=== PATIENT | female | born 1970 | race African-American/Black ===

== ENCOUNTER 2016-12-27 19:59 | Emergency (ER) | payer MEDICARE, MEDICAID ==
--- NOTE | 2016-12-27 21:19 | ER Document Report ---
ED Eye Complaint - General Chief Complaint: Eye Pain Stated Complaint: RIGHT EYE PAIN Time Seen by Provider: 12/27/16 20:56 Mode of Arrival: Ambulatory Information source: Patient Notes: 46-year-old female presents to ED for complaint of eye pain for 2-1/2 weeks. She states she went to her primary doctor about 2 weeks ago and told him she had a sinus problem. She thinks she might of gotten some in her eye about 2-1/ 2 weeks ago but it did not start hurting until 2 days ago. She states she has not had any redness but she has had a little bit of eye drainage. She states she wears glasses but did not bring them with her. She states that she recently got glasses in September and she thinks the prisms are upside down so she does not wear them because it makes her eye pain worse. Patient has a history of diabetes blood pressure and asthma. TRAVEL OUTSIDE OF THE [place] IN LAST 30 DAYS: No - HPI Onset: Other - 2 days ago Eye location: Right Injury: No - States she might have gotten some in her eye 2-1/2 weeks ago pain started 2 Occurred at: Other - Patient does not really remember what happened to her I Quality of pain: Burning, Pressure Severity: Severe Pain Level: 5 Safety glasses worn: No Contact lenses worn: No Associated symptoms: Pain. denies: Eyelid swelling, Orbital swelling, Blurred vision, Double vision, Decreased vision, Loss of vision - Related Data Allergies/Adverse Reactions: Penicillins Allergy (Verified 12/27/16 20:04) Sulfa (Sulfonamide Antibiotics) Allergy (Verified 12/27/16 20:04) Past Medical History - General Information source: Patient - Social History Smoking Status: Never Smoker Cigarette use (# per day): No Chew tobacco use (# tins/day): No Smoking Education Provided: No Frequency of alcohol use: None Drug Abuse: None Lives with: Alone Family History: Arthritis, CAD, CVA, DM, Hyperlipidemia, Hypertension. denies: COPD, Malignancy, Thyroid Disfunction Patient has suicidal ideation: No Patient has homicidal ideation: No - Past Medical History Cardiac Medical History: Reports: Hx Hypertension Pulmonary Medical History: Reports: Hx Asthma EENT Medical History: Reports: None Neurological Medical History: Reports: None Endocrine Medical History: Reports: Hx Diabetes Mellitus Type 2 - IDDM Renal/ Medical History: Reports: None Malignancy Medical History: Reports: None GI Medical History: Reports: None Musculoskeltal Medical History: Reports None Skin Medical History: Reports None Psychiatric Medical History: Reports: None Traumatic Medical History: Reports: None Infectious Medical History: Reports: None Past Surgical History: Reports: Hx Hysterectomy - Partial, Tubal, Hx Tubal Ligation - Immunizations Hx Diphtheria, Pertussis, Tetanus Vaccination: Yes Review of Systems - Review of Systems Constitutional: No symptoms reported EENT: Eye pain, Eye discharge Cardiovascular: No symptoms reported Respiratory: No symptoms reported Gastrointestinal: No symptoms reported Genitourinary: No symptoms reported Female Genitourinary: No symptoms reported Musculoskeletal: No symptoms reported Skin: No symptoms reported Hematologic/Lymphatic: No symptoms reported Neurological/Psychological: No symptoms reported Physical Exam - Vital signs Vitals: Temp Pulse Resp BP Pulse Ox 98.0 F 101 H 16 141/87 H 98 12/27/16 20:06 12/27/16 20:06 12/27/16 20:06 12/27/16 20:06 12/27/16 20:06 Interpretation: Normal - General General appearance: Appears well, Alert - HEENT Head: Normocephalic, Atraumatic Eyes: Normal Conjunctiva: No: Icteric, Injected, Purulent discharge Cornea: No: Corneal abrasion, Corneal ulcer Extraocular movements intact: Yes Eyelashes: Normal Pupils: PERRL Visual acuity- Right eye: 20/50 Visual acuity- Left eye: 20/40 Visual acuity- Both eyes: 20/70 Corrective lenses worn: Yes - Does not have her glasses with her and did not wear them for her test Right intraocular pressure: 18.95 Left intraocular pressure: 18.95 Anterior chamber: Normal Visual nixon normal: Yes Ears: Normal External canal: Normal Tympanic membrane: Normal Sinus: Normal Nasal: Normal Mouth/Lips: Normal Mucous membranes: Normal Pharynx: Normal Neck: Normal - Respiratory Respiratory status: No respiratory distress Chest status: Nontender Breath sounds: Normal Chest palpation: Normal - Cardiovascular Rhythm: Regular Heart sounds: Normal auscultation Murmur: No - Abdominal Inspection: Normal Distension: No distension Bowel sounds: Normal Tenderness: Nontender Organomegaly: No organomegaly - Back Back: Normal, Nontender - Extremities General upper extremity: Normal inspection, Nontender, Normal color, Normal ROM , Normal temperature General lower extremity: Normal inspection, Nontender, Normal color, Normal ROM , Normal temperature, Normal weight bearing. 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 Patient states that her pain in her eyes is worse when she wears her glasses because she thinks the prism is upside down in her glasses. She also stated that she got her glasses in September and this pain just started 2 days ago - Vital Signs Vital signs: Temp Pulse Resp BP Pulse Ox 98.0 F 101 H 16 141/87 H 98 12/27/16 20:06 12/27/16 20:06 12/27/16 20:06 12/27/16 20:06 12/27/16 20:06 Discharge - Discharge Clinical Impression: Acute right eye pain Condition: Stable Disposition: HOME, SELF-CARE Additional Instructions: You were seen today for right eye pain for the last 2 days. He denies any injury to the IN the last 2 days. You have no redness or drainage to the right eye. Your eye exam did not show a corneal abrasion or any recent redness or drainage. FOLLOW-UP CARE: If you have been referred to a physician for follow-up care, call the physician s office for an appointment as you were instructed or within the next two days. If you experience worsening or a significant change in your symptoms, notify the physician immediately or return to the Emergency Department at any time for re-evaluation.
[2016-12-27 22:02] VITALS: BP 136/88
== END 2016-12-27 21:57 | disposition home or self-care (01) ==
LOC: ER 19:59
DX: H57.11 Ocular pain, right eye (principal)
CPT/HCPCS: 99283